=== PATIENT | male | born 1945 | race Caucasian/White ===

== ENCOUNTER → 2016-07-15 | Outpatient (CLI) | payer OTHER ==
[~2016-07-15] MED LIST: ASPI-231 PO; ATO40T PO; BIOF500T11 PO; BUPR100T14 PO; CITA10TA70 PO; COEN300C PO; CYAN500T15 PO; FINA5TAB4 PO; IBUP200C14 PO; MECL-87 PO; MELA3TAB31 PO; METF-312 PO; MULTTAB OR; POTA8TAB2 PO; RAMI5CAP18 PO; RANI1TAB PO; SAW500CA6 PO; TEMA7.5C11 PO; TERA2CAP45 PO; TRAM50TA2 PO; [UNRECOGNIZED DRUG - CODE] OR
[2016-07-15 16:37] LABS: Urine RBC None Seen /hpf (0 - 3)
[2016-07-15 16:57] LABS: Basophils # (auto) 0 uL; Basophils % (auto) 0.3 % (0.0-2.0); Eosinophils # (auto) 0.2 uL; Eosinophils % (auto) 3.4 % (0.0-7.0); Hematocrit 42.4 % (41.0-53.0); Hemoglobin 14.1 g/dL (13.5-17.5); Lymphocytes # (auto) 1.5 uL; Lymphocytes % (auto) 27.1 % (10.0-50.0); Mean Corpuscular Hemoglobin 29.3 pg (28.0-32.0); Mean Corpuscular Hgb Conc. 33.3 g/dL (32.0-36.0); Mean Platelet Volume 7.8 fL (7.4-10.4); Monocytes # (auto) 0.5 uL; Monocytes % (auto) 8.8 % (0.0-12.0); Neutrophils # (auto) 3.3 uL; Neutrophils % (auto) 60.4 % (37.0-80.0); Platelet Count (auto) 201 10^3/uL (140-450); Red Cell Distribution Width 14.3 % (11.6-16.0); Urine Bilirubin Negative (Negative); Urine Blood Negative /uL (Negative); Urine Color Yellow (Yellow); Urine Glucose Normal (Normal); Urine Ketone Negative (Negative); Urine Nitrite Negative (Negative); Urine Squamous Epithelial Cell FEW /hpf (<5); Urine Urobilinogen Normal (Negative); Urine pH 5.5 (5.0-8.0); White Blood Cell 5.5 10^3/uL (4.4-10.8)
[2016-07-15 17:05] LABS: INR 1.14 (0.9-1.15); Partial Thromboplastin Time 29.4 sec (22.64-33.71); Prothrombin Time 11.7 sec (9.37-12.3)
[2016-07-15 17:17] LABS: Potassium 4.1 mmol/L (3.5-5.1)
[2016-07-15 17:19] LABS: BUN/Creatinine Ratio 25.8
[2016-07-15 17:22] LABS: Bilirubin, Total 0.5 mg/dL (0.2-1.0); Total Protein 7.8 g/dL (6.4-8.2)
== END | disposition home or self-care (01) ==
LOC: LAB 14:46
PROVIDERS: ATTEND Podiatrist Foot & Ankle Surgery
DX: Z01.818 Encounter for other preprocedural examination (principal); I70.0 Atherosclerosis of aorta; M47.894 Other spondylosis, thoracic region; R79.1 Abnormal coagulation profile; Z95.1 Presence of aortocoronary bypass graft
CPT/HCPCS: 36415; 80053; 81001; 85025; 85610; 85730

== ENCOUNTER 2016-07-16 07:14 | Day surgery (SDC) | payer OTHER ==
[~2016-07-16] VITALS: Ht 182.9 cm; Wt 103.4 kg
[2016-07-16] MEDS ORDERED: BUPIVACAINE 0.75% INJ 10ML MPV SDV IJ ONE (08:30)
[2016-07-16] MEDS ORDERED: ceFAZolin 1GM/50ML D5W 50 ML IV ONE (08:31)
[2016-07-16] MEDS ORDERED: MIDAZOLAM HCL 1MG/1ML-2 ML VIAL ONE (09:28)
[2016-07-16] MEDS ORDERED: fentaNYL CITRATE 100 MCG/2 ML VL ONE ×2 (09:28→09:42)
[2016-07-16] MEDS ORDERED: ONDANSETRON HCL 4 MG/2 ML VIAL ONE (09:28)
[2016-07-16] MEDS ORDERED: DEXAMETHASONE SOD PHOS 10MG/1ML VIAL INJ ONE (09:28)
[2016-07-16] MEDS ORDERED: KETOROLAC TROMETH 60MG/2ML VIAL IM ONE (09:29)
[2016-07-16] MEDS ORDERED: PROPOFOL 10 MG/ML 20 ML IV ONE (09:31)
[2016-07-16] MEDS ORDERED: HYDROmorphone HCL 2 MG/ML VL IV PRN (10:15)
[2016-07-16] MEDS ORDERED: ONDANSETRON HCL 4 MG/2 ML VIAL IV ONE (10:15)
[2016-07-16 11:12] VITALS: BP 120/73
== END 2016-07-16 11:27 | disposition home or self-care (01) ==
LOC: SUR 07:14
PROVIDERS: ATTEND Podiatrist Foot & Ankle Surgery
DX: M20.42 Other hammer toe(s) (acquired), left foot (principal); E11.9 Type 2 diabetes mellitus without complications; Z95.1 Presence of aortocoronary bypass graft
CPT/HCPCS: 28010; 28285; 82962; 88304; 88311; J0690; J1100; J1885; J2250; J2405; J2704; J3010; J3490; Q4139